=== PATIENT | male | born 1970 | race Caucasian/White ===

== ENCOUNTER 2018-05-29 09:36 | Inpatient (IN) | payer OTHER ==
[2018-05-29 10:49] VITALS: BMI 28.3
--- NOTE | 2018-05-29 13:55 | HP ---
CIWA Score Nausea/Vomitin Muscle Tremors: 2 Anxiety: 2 Agitation: 2 Paroxysmal Sweats: 1-Minimal Palms Moist Orientation: 0-Oriented Tacttile Disturbances: 1-Very Mild Itch/Numbness Auditory Disturbances: 1-Very Mild Visual Disturbances: 0-None Headache: 2-Mild CIWA-Ar Total Score: 13 - Admission Criteria OASAS Guidelines: Admission for Medically Managed Detox: Requires at least one of the followin. CIWA greater than 12 2. Seizures within the past 24 hours 3. Delirium tremens within the past 24 hours 4. Hallucinations within the past 24 hours 5. Acute intervention needed for co occurring medical disorder 6. Acute intervention needed for co occurring psychiatric disorder 7. Severe withdrawal that cannot be handled at a lower level of care (continued vomiting, continued diarrhea, abnormal vital signs) requiring intravenous medication and/or fluids 8. Admission ROS BHS - HPI Chief Complaint: i need help to stop drinking alcohol Allergies/Adverse Reactions: Allergies Allergy/AdvReac Type Severity Reaction Status Date / Time No Known Allergies Allergy Verified 05/29/18 10:15 History of Present Illness: this 47 years old male with alcohol dependence,seeking detox,withdrawal symptom, multiple admissions in detox but keep relapsing last treatment [facility] 04/02 syncope alcohol related history of frequent falls seen in [facility] last night history of hypertension on med arthritis nicotine dependence 1 pack/day,would like nicotine patch would like to go to rehab after detox Exam Limitations: No Limitations - Ebola screening Have you traveled outside of the country in the last 21 days: No Have you had contact with anyone from an Ebola affected area: No Do you have a fever: No - Review of Systems Constitutional: Malaise, Night Sweats, Changes in sleep EENT: reports: Nose Congestion Respiratory: reports: No Symptoms reported Cardiac: reports: No Symptoms Reported GI: reports: Nausea, Vomiting, Indigestion : reports: No Symptoms Reported Musculoskeletal: reports: Back Pain, Muscle Pain Integumentary: reports: Dryness Neuro: reports: Headache, Tremors Endocrine: reports: No Symptoms Reported Hematology: reports: No Symptoms Reported Psychiatric: reports: No Sypmtoms Reported, Judgement Intact, Mood/Affect Appropiate, Orientated x3 Other Systems: Reviewed and Negative Patient History - Patient Medical History Hx Anemia: No Hx Asthma: No Hx Chronic Obstructive Pulmonary Disease (COPD): No Hx Cancer: No Hx Cardiac Disorders: No Hx Congestive Heart Failure: No Hx Hypertension: Yes (TAKES HCTZ 25 MG DAILY) Hx Hypercholesterolemia: Yes (NO CURRENT MEDS) Hx Pacemaker: No HX Cerebrovascular Accident: No Hx Seizures: No Hx Dementia: No Hx Diabetes: No Hx Gastrointestinal Disorders: No Hx Liver Disease: No Hx Genitourinary Disorders: No Hx Sexually Transmitted Disorders: No Hx Renal Disease (ESRD): No Hx Thyroid Disease: No Hx Human Immunodeficiency Virus (HIV): No (NEGATIVE HX last 2016) Hx Hepatitis C: No Hx Depression: No Hx Suicide Attempt: No Hx Bipolar Disorder: No Hx Schizophrenia: No Other Medical History: no suicidal,no homicidal,frrequent falls - Patient Surgical History Past Surgical History: Yes Hx Neurologic Surgery: No Hx Cataract Extraction: No Hx Cardiac Surgery: No Hx Lung Surgery: No Hx Breast Surgery: No Hx Breast Biopsy: No Hx Abdominal Surgery: No Hx Appendectomy: No Hx Cholecystectomy: No Hx Genitourinary Surgery: No Hx Orthopedic Surgery: No Other Surgical History: fx of right mandible in 10/24 Anesthesia Reaction: No - PPD History Previous Implant?: Yes Documented Results: Negative w/o proof Implanted On Prior R Admission?: Yes Date: 11/03/15 Results: 0 mm PPD to be Administered?: Yes - Smoking Cessation Smoking history: Current every day smoker Have you smoked in the past 12 months: Yes Aproximately how many cigarettes per day: 20 Hx Chewing Tobacco Use: No Initiated information on smoking cessation: Yes 'Breaking Loose' booklet given: 05/29/18 - Substance & Tx. History Hx Alcohol Use: Yes Hx Substance Use: No Substance Use Type: Alcohol Hx Substance Use Treatment: No - Substances abused Alcohol Substance route: Oral Frequency: Daily Amount used: 3 pints of vodka/ case of 24oz beer Age of first use: 15 Date of last use: 05/29/18 Family Disease History - Family Disease History Family History: Denies Admission Physical Exam BHS - Vital Signs Vital Signs: Vital Signs - 24 hr 05/29/18 05/29/18 10:42 11:04 Temperature 97.6 F 97.6 F Pulse Rate 92 H 92 H Respiratory 20 20 Rate Blood Pressure 187/122 H 187/122 H - Physical General Appearance: Yes: Moderate Distress, Intoxicated, Cachetic, Tremorous, Irritable, Sweating HEENTM: Yes: Normal ENT Inspection, NEW, Pharynx Normal, Other (fx of mandibles ) Respiratory: Yes: Within Normal Limits, Lungs Clear, Normal Breath Sounds Neck: Yes: Within Normal Limits, Supple, Trachea in good position Breast: Yes: Within Normal Limits Cardiology: Yes: Within Normal Limits, Regular Rhythm, Regular Rate, S1, S2 Abdominal: Yes: Normal Bowel Sounds, Non Tender, Flat, Soft Genitourinary: Yes: Within Normal Limits Back: Yes: Muscle Spasm Musculoskeletal: Yes: Back pain, Muscle Pain Extremities: Yes: Tremors Neurological: Yes: investigations chief II-XII NML intact, Fully Oriented, Alert, Motor Strength 5/5 Integumentary: Yes: Dry, Other (multiple abrasions) Lymphatic: Yes: Within Normal Limits - Diagnostic (1) Alcohol dependence with uncomplicated withdrawal Current Visit: No Status: Acute (2) Alcohol dependence with uncomplicated intoxication Current Visit: Yes Status: Acute (3) Essential hypertension Current Visit: No Status: Chronic (4) Syncope Current Visit: No Status: Chronic (5) Multiple abrasions Current Visit: Yes Status: Acute (6) Dehydration Current Visit: Yes Status: Acute (7) Nicotine dependence Current Visit: Yes Status: Acute (8) Frequent falls Current Visit: Yes Status: Acute Cleared for Admission S - Detox or Rehab S Level of Care: Medically Managed Detox Regimen/Protocol: Librium Breathalyzer - Breathalyzer Breathalyzer: 0.229 Urine Drug Screen - Test Device Lot number: [id number] Expiration date: 01/12/20 - Control Is test valid?: Yes - Results Drug screen NEGATIVE: Yes Inpatient Rehab Admission - Rehab Decision to Admit Inpatient rehab admission?: No
[2018-05-29] MEDS ORDERED: MENTHOL/PHENOL 1 EACH UD MM PRN (14:09)
[2018-05-29] MEDS ORDERED: BISMUTH SUBSALICYLATE 262 MG/15 ML BTL PO PRN (14:09)
[2018-05-29] MEDS ORDERED: MAGNESIUM HYDROX 2400MG/30ML ORAL SUSPENSION 30 ML CUP PO PRN (14:09)
[2018-05-29] MEDS ORDERED: ACETAMINOPHEN 325 MG TABLET (FP) PO PRN ×2 (14:09)
[2018-05-29] MEDS ORDERED: MAGNESIUM CITRATE 300 ML BOTTLE PO PRN (14:09)
[2018-05-29] MEDS ORDERED: hydrOXYzine PAMOATE 25 MG CAPSULE (FP) PO PRN (14:09)
[2018-05-29] MEDS ORDERED: MAG HYDROX/AL HYDROX/SIMETH 30 ML UNIT-DOSE CUP PO PRN (14:09)
[2018-05-29] MEDS ORDERED: chlordiazePOXIDE HCL 25 MG CAPSULE PO PRN (14:09)
[2018-05-29] MEDS: TRIAMTERENE AND HCTZ - 37.5 MG/25 MG CAPSULE PO SCH (15:19)
[2018-05-29 16:12] LABS: HEMATOCRIT 42.9 % (35.4-49); HEMOGLOBIN 14.5 GM/dL (11.7-16.9); MCH 33.8 pg (25.7-33.7); MCHC 33.8 g/dl (32.0-35.9); MEAN PLT VOLUME 9.3 fl (7.5-11.1); PLATELET COUNT 150 K/MM3 (134-434); RBC 4.29 M/mm3 (4.00-5.60); RDW 14.1 % (11.9-15.9); WHITE BLOOD COUNT 4.8 K/mm3 (4.0-10.0)
[2018-05-29 16:17] LABS: PH,URINE 6.5 (5.0-8.0); URINE APPEARANCE CLEAR; URINE BILIRUBIN NEGATIVE (NEGATIVE); URINE COLOR YELLOW; URINE GLUCOSE (UA) NEGATIVE (NEGATIVE); URINE KETONE NEGATIVE (NEGATIVE); URINE LEUK ESTERASE NEGATIVE (NEGATIVE); URINE NITRITE NEGATIVE (NEGATIVE); URINE PROTEIN NEGATIVE (NEGATIVE); URINE UROBILINOGEN 0.2 mg/dL (0.2-1.0)
[2018-05-29 16:24] LABS: ALBUMIN 3.1 g/dl (3.4-5.0); ALK PHOS 132 U/L (45-117); ANION GAP 8 MMOL/L (8-16); BILIRUBIN,TOTAL 0.2 mg/dL (0.2-1); BLOOD UREA NITROGEN 9 mg/dL (7-18); CALCIUM 8.6 mg/dL (8.5-10.1); CHLORIDE 105 mmol/L (98-107); CO2 27 mmol/L (21-32); CREATININE 0.5 mg/dL (0.55-1.3); GLUCOSE,RANDOM 147 mg/dL (74-106); POTASSIUM 3.8 mmol/L (3.5-5.1); SGOT/AST 84 U/L (15-37); SGPT/ALT 65 U/L (13-61); SODIUM 140 mmol/L (136-145); TOT PROT 6.4 g/dl (6.4-8.2)
[2018-05-29] MEDS: chlordiazePOXIDE HCL 25 MG CAPSULE PO SCH ×2 (16:53→22:25)
[2018-05-29] MEDS ORDERED: cloNIDine HCL 0.1 MG TABLET PO ONE ×2 (17:37→20:32)
[2018-05-29] MEDS: IBUPROFEN 400 MG TABLET (FP) PO PRN (17:52)
--- NOTE | 2018-05-29 20:33 | PN ---
[facility] Progress Note Note: Vital Signs Temperature 98.4 F 05/29/18 17:34 Pulse Rate 110 H 05/29/18 17:40 Respiratory Rate 18 05/29/18 17:40 Blood Pressure 184/97 H 05/29/18 17:40 O2 Sat by Pulse Oximetry (%) asymptomatic elevated BP one time dose clonidine increase Po fluids continue to monitor
[2018-05-29] MEDS: MELATONIN 5 MG TABLETS PO PRN (22:25)
[2018-05-29] MEDS: THIAMINE HCL 100 MG TABLET (FP) PO SCH (22:25)
[2018-05-29] MEDS: RANITIDINE HCL 150 MG TABLET (FP) PO SCH (22:25)
[2018-05-29] MEDS: BACITRACIN 0.9 GM PACKET TP SCH (22:25)
[2018-05-30] MEDS: chlordiazePOXIDE HCL 25 MG CAPSULE PO SCH ×4 (06:15→22:21)
[2018-05-30] MEDS: TRIAMTERENE AND HCTZ - 37.5 MG/25 MG CAPSULE PO SCH (10:39)
[2018-05-30] MEDS: PRENATAL VITAMINS W/ FOLIC ACID TABLET (FP) PO SCH (10:39)
[2018-05-30] MEDS: BACITRACIN 0.9 GM PACKET TP SCH ×2 (10:39→22:21)
[2018-05-30] MEDS: RANITIDINE HCL 150 MG TABLET (FP) PO SCH ×2 (10:39→22:21)
[2018-05-30 11:01] LABS: HEMATOCRIT 46.7 % (35.4-49); MCH 33.8 pg (25.7-33.7); MCHC 34.3 g/dl (32.0-35.9); MEAN CELL VOLUME 98.6 fl (80-96); MEAN PLT VOLUME 9.7 fl (7.5-11.1); PLATELET COUNT 136 K/MM3 (134-434); RBC 4.74 M/mm3 (4.00-5.60); RDW 13.9 % (11.9-15.9); WHITE BLOOD COUNT 7.5 K/mm3 (4.0-10.0)
[2018-05-30 12:17] LABS: ALBUMIN 3.4 g/dl (3.4-5.0); ALK PHOS 148 U/L (45-117); ANION GAP 7 MMOL/L (8-16); BILIRUBIN,TOTAL 0.6 mg/dL (0.2-1); BLOOD UREA NITROGEN 9 mg/dL (7-18); CALCIUM 9.7 mg/dL (8.5-10.1); CHLORIDE 101 mmol/L (98-107); CO2 30 mmol/L (21-32); CREATININE 0.5 mg/dL (0.55-1.3); GLUCOSE,RANDOM 89 mg/dL (74-106); POTASSIUM 3.8 mmol/L (3.5-5.1); SGOT/AST 52 U/L (15-37); SGPT/ALT 57 U/L (13-61); SODIUM 138 mmol/L (136-145); TOT PROT 6.8 g/dl (6.4-8.2)
--- NOTE | 2018-05-30 15:15 | PN ---
[facility] CIWA - CIWA Score Nausea/Vomitin-No Nausea/No Vomiting Muscle Tremors: 2 Anxiety: 2 Agitation: 0-Normal Activity Paroxysmal Sweats: 3 Orientation: 0-Oriented Tacttile Disturbances: 2-Mild Itch/Numbness/Burn Auditory Disturbances: 2-Mild Harshness/Frighten Visual Disturbances: 0-None Headache: 0-None Present CIWA-Ar Total Score: 11 S Progress Note (SOAP) Subjective: Sweating, Chills, Body Aches, Fatigue. Objective: PATIENT A & O X 3. IN NO ACUTE DISTRESS. 05/30/18 15:14 Vital Signs Temperature 98.2 F 05/30/18 14:17 Pulse Rate 74 05/30/18 14:17 Respiratory Rate 16 05/30/18 14:17 Blood Pressure 152/93 05/30/18 14:17 O2 Sat by Pulse Oximetry (%) Laboratory Tests 05/29/18 05/29/18 05/29/18 14:00 14:00 14:00 WBC 4.8 RBC 4.29 Hgb 14.5 Hct 42.9 MCV 100.0 H MCH 33.8 H D MCHC 33.8 RDW 14.1 D Plt Count 150 D MPV 9.3 Sodium 140 Potassium 3.8 Chloride 105 Carbon Dioxide 27 Anion Gap 8 BUN 9 Creatinine 0.5 L Creat Clearance w eGFR 178.23 Random Glucose 147 H Calcium 8.6 Total Bilirubin 0.2 AST 84 H ALT 65 H Alkaline Phosphatase 132 H Total Protein 6.4 Albumin 3.1 L Urine Color Urine Appearance Urine pH Ur Specific [place] Urine Protein Urine Glucose (UA) Urine Ketones Urine Blood Urine Nitrite Urine Bilirubin Urine Urobilinogen Ur Leukocyte Esterase RPR Titer Nonreactive 05/29/18 05/30/18 05/30/18 15:00 07:00 07:00 WBC 7.5 RBC 4.74 Hgb 16.0 Hct 46.7 MCV 98.6 H MCH 33.8 H MCHC 34.3 RDW 13.9 Plt Count 136 MPV 9.7 Sodium 138 Potassium 3.8 Chloride 101 Carbon Dioxide 30 Anion Gap 7 L BUN 9 Creatinine 0.5 L Creat Clearance w eGFR 178.23 Random Glucose 89 Calcium 9.7 Total Bilirubin 0.6 AST 52 H ALT 57 Alkaline Phosphatase 148 H Total Protein 6.8 Albumin 3.4 Urine Color Yellow Urine Appearance Clear Urine pH 6.5 D Ur Specific [place] 1.007 L Urine Protein Negative Urine Glucose (UA) Negative Urine Ketones Negative Urine Blood Negative Urine Nitrite Negative Urine Bilirubin Negative Urine Urobilinogen 0.2 Ur Leukocyte Esterase Negative RPR Titer LABS NOTED. RESULTS OF REPEAT CMP NOTED. 05/30/18 15:20 Assessment: 05/30/18 15:17 WITHDRAWAL SYMPTOMS. HYPERTENSION. Plan: CONTINUE DETOX. CLONIDINE, 0.1 MG PO X 1 FOR ELEVATED BP DESPITE TREATMENT AND FOR WITHDRAWAL SYMPTOMS.
[2018-05-30] MEDS ORDERED: cloNIDine HCL 0.1 MG TABLET PO ONE (15:55)
[2018-05-30] MEDS: IBUPROFEN 400 MG TABLET (FP) PO PRN (18:01)
[2018-05-30] MEDS: THIAMINE HCL 100 MG TABLET (FP) PO SCH (22:21)
[2018-05-31] MEDS: chlordiazePOXIDE HCL 25 MG CAPSULE PO SCH ×2 (06:06→10:46)
--- NOTE | 2018-05-31 07:12 | PN ---
[facility] Progress Note Note: Patient's blood pressure was B/P 193/131. Patient is asymptomatic Vital Signs Temperature 97.1 F L 05/31/18 06:00 Pulse Rate 67 05/31/18 06:00 Respiratory Rate 18 05/31/18 06:00 Blood Pressure 193/131 H 05/31/18 06:00 O2 Sat by Pulse Oximetry (%) Action: Clonidine 0.1mg tablet oral ordered
[2018-05-31] MEDS ORDERED: cloNIDine HCL 0.1 MG TABLET PO ONE (08:15)
[2018-05-31] MEDS: BACITRACIN 0.9 GM PACKET TP SCH ×2 (10:45→22:16)
[2018-05-31] MEDS: RANITIDINE HCL 150 MG TABLET (FP) PO SCH ×2 (10:45→22:16)
[2018-05-31] MEDS: PRENATAL VITAMINS W/ FOLIC ACID TABLET (FP) PO SCH (10:45)
[2018-05-31] MEDS: TRIAMTERENE AND HCTZ - 37.5 MG/25 MG CAPSULE PO SCH (11:57)
--- NOTE | 2018-05-31 15:57 | PN ---
S CIWA - CIWA Score Nausea/Vomitin-Mild Nausea/No Vomiting Muscle Tremors: 1-None Visible, but [place] Anxiety: 1-Mildly Anxious Agitation: 1-Slight > Activity Paroxysmal Sweats: No Perspiration Orientation: 0-Oriented Tacttile Disturbances: 0-None Auditory Disturbances: 0-None Visual Disturbances: 0-None Headache: 0-None Present CIWA-Ar Total Score: 4 BHS Progress Note (SOAP) Subjective: pt doing well on alcohol detox protocol- no complaints, high BP noted- pt states takes HCTZ for BP control O: Vital Signs - 24 hr 05/30/18 05/30/18 05/31/18 17:15 21:27 00:30 Temperature 98.4 F 97.9 F Pulse Rate 70 91 H Respiratory 20 18 18 Rate Blood Pressure 152/96 117/92 05/31/18 05/31/18 05/31/18 06:00 11:18 14:54 Temperature 97.1 F L 98.2 F 97.6 F Pulse Rate 67 84 91 H Respiratory 18 18 18 Rate Blood Pressure 193/131 H 144/106 H 148/88 Laboratory Tests 05/29/18 05/29/18 05/29/18 14:00 14:00 14:00 WBC 4.8 RBC 4.29 Hgb 14.5 Hct 42.9 MCV 100.0 H MCH 33.8 H D MCHC 33.8 RDW 14.1 D Plt Count 150 D MPV 9.3 Sodium 140 Potassium 3.8 Chloride 105 Carbon Dioxide 27 Anion Gap 8 BUN 9 Creatinine 0.5 L Creat Clearance w eGFR 178.23 Random Glucose 147 H Calcium 8.6 Total Bilirubin 0.2 AST 84 H ALT 65 H Alkaline Phosphatase 132 H Total Protein 6.4 Albumin 3.1 L Urine Color Urine Appearance Urine pH Ur Specific [place] Urine Protein Urine Glucose (UA) Urine Ketones Urine Blood Urine Nitrite Urine Bilirubin Urine Urobilinogen Ur Leukocyte Esterase RPR Titer Nonreactive 05/29/18 05/30/18 05/30/18 15:00 07:00 07:00 WBC 7.5 RBC 4.74 Hgb 16.0 Hct 46.7 MCV 98.6 H MCH 33.8 H MCHC 34.3 RDW 13.9 Plt Count 136 MPV 9.7 Sodium 138 Potassium 3.8 Chloride 101 Carbon Dioxide 30 Anion Gap 7 L BUN 9 Creatinine 0.5 L Creat Clearance w eGFR 178.23 Random Glucose 89 Calcium 9.7 Total Bilirubin 0.6 AST 52 H ALT 57 Alkaline Phosphatase 148 H Total Protein 6.8 Albumin 3.4 Urine Color Yellow Urine Appearance Clear Urine pH 6.5 D Ur Specific [place] 1.007 L Urine Protein Negative Urine Glucose (UA) Negative Urine Ketones Negative Urine Blood Negative Urine Nitrite Negative Urine Bilirubin Negative Urine Urobilinogen 0.2 Ur Leukocyte Esterase Negative RPR Titer a/p: continue alcohol detox protocol BP 148/88 today- will monitor, and add meds as needed
[2018-05-31] MEDS ORDERED: chlordiazePOXIDE HCL 10 MG CAPSULE PO PRN (17:00)
[2018-05-31] MEDS: chlordiazePOXIDE HCL 10 MG CAPSULE PO SCH ×2 (17:46→22:16)
[2018-05-31] MEDS: THIAMINE HCL 100 MG TABLET (FP) PO SCH (22:15)
[2018-05-31] MEDS: METHOCARBAMOL 500 MG TABLET PO PRN (22:16)
[2018-06-01] MEDS: chlordiazePOXIDE HCL 10 MG CAPSULE PO SCH ×3 (06:06→17:47)
[2018-06-01] MEDS ORDERED: cloNIDine HCL 0.1 MG TABLET PO ONE ×2 (07:04→10:15)
[2018-06-01] MEDS ORDERED: LISINOPRIL 10 MG TABLET (FP) PO SCH (10:00)
[2018-06-01] MEDS: RANITIDINE HCL 150 MG TABLET (FP) PO SCH ×2 (10:27→22:53)
[2018-06-01] MEDS: BACITRACIN 0.9 GM PACKET TP SCH ×2 (10:27→22:53)
[2018-06-01] MEDS: PRENATAL VITAMINS W/ FOLIC ACID TABLET (FP) PO SCH (10:27)
[2018-06-01] MEDS: TRIAMTERENE AND HCTZ - 37.5 MG/25 MG CAPSULE PO SCH (11:00)
--- NOTE | 2018-06-01 12:42 | PN ---
S Progress Note Note: Pt's BP is 174/112, HR of 76, pt denies any SOB, headache, blurred vision, chest pain, or N/V. Clonidine 0.1mg po once ordered. Nursing staff instructed to recheck BP 1hr after medication administration.
--- NOTE | 2018-06-01 15:36 | PN ---
S CIWA - CIWA Score Nausea/Vomitin-No Nausea/No Vomiting Muscle Tremors: None Anxiety: 1-Mildly Anxious Agitation: 0-Normal Activity Paroxysmal Sweats: 3 Orientation: 0-Oriented Tacttile Disturbances: 0-None Auditory Disturbances: 0-None Visual Disturbances: 0-None Headache: 2-Mild CIWA-Ar Total Score: 6 BHS Progress Note (SOAP) Subjective: sweats headache Objective: 06/01/18 15:34 Vital Signs 06/01/18 06/01/18 09:46 14:33 Temperature 98.3 F 98.0 F Pulse Rate 74 62 Respiratory 18 18 Rate Blood Pressure 150/115 H 112/65 Laboratory Last Values WBC 7.5 K/mm3 (4.0-10.0) 05/30/18 07:00 RBC 4.74 M/mm3 (4.00-5.60) 05/30/18 07:00 Hgb 16.0 GM/dL (11.7-16.9) 05/30/18 07:00 Hct 46.7 % (35.4-49) 05/30/18 07:00 MCV 98.6 fl (80-96) H 05/30/18 07:00 MCH 33.8 pg (25.7-33.7) H 05/30/18 07:00 MCHC 34.3 g/dl (32.0-35.9) 05/30/18 07:00 RDW 13.9 % (11.9-15.9) 05/30/18 07:00 Plt Count 136 K/MM3 (134-434) 05/30/18 07:00 MPV 9.7 fl (7.5-11.1) 05/30/18 07:00 Sodium 138 mmol/L (136-145) 05/30/18 07:00 Potassium 3.8 mmol/L (3.5-5.1) 05/30/18 07:00 Chloride 101 mmol/L (98-107) 05/30/18 07:00 Carbon Dioxide 30 mmol/L (21-32) 05/30/18 07:00 Anion Gap 7 MMOL/L (8-16) L 05/30/18 07:00 BUN 9 mg/dL (7-18) 05/30/18 07:00 Creatinine 0.5 mg/dL (0.55-1.3) L 05/30/18 07:00 Creat Clearance w eGFR 178.23 (>60) 05/30/18 07:00 Random Glucose 89 mg/dL (74-106) 05/30/18 07:00 Calcium 9.7 mg/dL (8.5-10.1) 05/30/18 07:00 Total Bilirubin 0.6 mg/dL (0.2-1) 05/30/18 07:00 AST 52 U/L (15-37) H 05/30/18 07:00 ALT 57 U/L (13-61) 05/30/18 07:00 Alkaline Phosphatase 148 U/L (45-117) H 05/30/18 07:00 Total Protein 6.8 g/dl (6.4-8.2) 05/30/18 07:00 Albumin 3.4 g/dl (3.4-5.0) 05/30/18 07:00 Urine Color Yellow 05/29/18 15:00 Urine Appearance Clear 05/29/18 15:00 Urine pH 6.5 (5.0-8.0) D 05/29/18 15:00 Ur Specific [place] 1.007 (1.010-1.035) L 05/29/18 15:00 Urine Protein Negative (NEGATIVE) 05/29/18 15:00 Urine Glucose (UA) Negative (NEGATIVE) 05/29/18 15:00 Urine Ketones Negative (NEGATIVE) 05/29/18 15:00 Urine Blood Negative (NEGATIVE) 05/29/18 15:00 Urine Nitrite Negative (NEGATIVE) 05/29/18 15:00 Urine Bilirubin Negative (NEGATIVE) 05/29/18 15:00 Urine Urobilinogen 0.2 mg/dL (0.2-1.0) 05/29/18 15:00 Ur Leukocyte Esterase Negative (NEGATIVE) 05/29/18 15:00 RPR Titer Nonreactive (NONREACTIVE) 05/29/18 14:00 Labs reviewed Assessment: 06/01/18 15:35 AOX3, no distress Full rom ambulating in the unit Plan: continue detox continue to monitor
[2018-06-01] MEDS: IBUPROFEN 400 MG TABLET (FP) PO PRN (16:01)
[2018-06-01] MEDS: THIAMINE HCL 100 MG TABLET (FP) PO SCH (22:53)
[2018-06-01] MEDS: MELATONIN 5 MG TABLETS PO PRN (22:53)
[2018-06-02] MEDS: chlordiazePOXIDE HCL 10 MG CAPSULE PO SCH ×2 (05:19→17:56)
[2018-06-02] MEDS: TRIAMTERENE AND HCTZ - 37.5 MG/25 MG CAPSULE PO SCH (06:27)
[2018-06-02] MEDS: LISINOPRIL 10 MG TABLET (FP) PO SCH (06:27)
[2018-06-02] MEDS: BACITRACIN 0.9 GM PACKET TP SCH ×2 (10:34→22:16)
[2018-06-02] MEDS: PRENATAL VITAMINS W/ FOLIC ACID TABLET (FP) PO SCH (10:34)
[2018-06-02] MEDS: RANITIDINE HCL 150 MG TABLET (FP) PO SCH ×2 (10:34→22:16)
--- NOTE | 2018-06-02 14:43 | PN ---
S CIWA - CIWA Score Nausea/Vomitin-No Nausea/No Vomiting Muscle Tremors: None Anxiety: 3 Agitation: 2 Paroxysmal Sweats: 2 Orientation: 0-Oriented Tacttile Disturbances: 0-None Auditory Disturbances: 0-None Visual Disturbances: 0-None Headache: 0-None Present CIWA-Ar Total Score: 7 S Progress Note (SOAP) Subjective: Feels anxious, restless, sweating. Patient for discharge today but requesting inpatient rehab as he is afraid of relapsing. Patient stated that if he leaves today he is sure of drinking alcohol. Hold discharge until rehab bed available, hopefully tomorrow. Objective: 06/02/18 14:40 Last Vital Signs Temp Pulse Resp BP Pulse Ox 97.3 F L 67 18 113/67 06/02/18 14:20 06/02/18 14:20 06/02/18 14:20 06/02/18 14:20 Laboratory Tests 05/29/18 05/29/18 05/29/18 14:00 14:00 14:00 WBC 4.8 RBC 4.29 Hgb 14.5 Hct 42.9 MCV 100.0 H MCH 33.8 H D MCHC 33.8 RDW 14.1 D Plt Count 150 D MPV 9.3 Sodium 140 Potassium 3.8 Chloride 105 Carbon Dioxide 27 Anion Gap 8 BUN 9 Creatinine 0.5 L Creat Clearance w eGFR 178.23 Random Glucose 147 H Calcium 8.6 Total Bilirubin 0.2 AST 84 H ALT 65 H Alkaline Phosphatase 132 H Total Protein 6.4 Albumin 3.1 L Urine Color Urine Appearance Urine pH Ur Specific [place] Urine Protein Urine Glucose (UA) Urine Ketones Urine Blood Urine Nitrite Urine Bilirubin Urine Urobilinogen Ur Leukocyte Esterase RPR Titer Nonreactive 05/29/18 05/30/18 05/30/18 15:00 07:00 07:00 WBC 7.5 RBC 4.74 Hgb 16.0 Hct 46.7 MCV 98.6 H MCH 33.8 H MCHC 34.3 RDW 13.9 Plt Count 136 MPV 9.7 Sodium 138 Potassium 3.8 Chloride 101 Carbon Dioxide 30 Anion Gap 7 L BUN 9 Creatinine 0.5 L Creat Clearance w eGFR 178.23 Random Glucose 89 Calcium 9.7 Total Bilirubin 0.6 AST 52 H ALT 57 Alkaline Phosphatase 148 H Total Protein 6.8 Albumin 3.4 Urine Color Yellow Urine Appearance Clear Urine pH 6.5 D Ur Specific [place] 1.007 L Urine Protein Negative Urine Glucose (UA) Negative Urine Ketones Negative Urine Blood Negative Urine Nitrite Negative Urine Bilirubin Negative Urine Urobilinogen 0.2 Ur Leukocyte Esterase Negative RPR Titer Labs reviewed: alk phos 148 Assessment: 06/02/18 14:43 Withdrawal symptoms Noted with elevated alk phosphatase Plan: Continue detox Encouraged PO water hydration Please admit to [facility] in AM Elevated alk phosphatase: repeat alk phos level in AM
[2018-06-02] MEDS: MELATONIN 5 MG TABLETS PO PRN (22:16)
[2018-06-02] MEDS: THIAMINE HCL 100 MG TABLET (FP) PO SCH (22:16)
[2018-06-02] MEDS: METHOCARBAMOL 500 MG TABLET PO PRN (22:18)
[2018-06-02] MEDS: IBUPROFEN 400 MG TABLET (FP) PO PRN (22:18)
[2018-06-03 06:10] VITALS: BP 128/80; PULSE 58; TEMP 97.5
[2018-06-03] MEDS: LISINOPRIL 10 MG TABLET (FP) PO SCH (07:00)
[2018-06-03] MEDS: TRIAMTERENE AND HCTZ - 37.5 MG/25 MG CAPSULE PO SCH (07:00)
--- NOTE | 2018-06-03 20:33 | DS ---
[facility] Detox Discharge Summary Admission Date: 05/29/18 Discharge Date: 06/03/18 - History Present History: Alcohol Dependence Additional Comments: PATIENT WISHES TO GO TO [facility] ([place], [place]) FOR AFTERCARE ; HOWEVER, NO REHAB BEDS AVAILABLE AT [facility] AT THIS TIME. PATIENT OFFERED OPPORTUNITY TO GO TO REHAB AT [facility]; HOWEVER, PATIENT DECLINED TO DO SO AT THIS TIME AND ELECTS TO LEAVE DETOX UNIT AND RETURN HOME. PATIENT ADVISED TO CONTACT [facility] ADMISSIONS DEPARTMENT STARTING TOMORROW AM TO INQUIRE ABOUT BED AVAILABILTY AT THAT TIME OR ELSE CONSIDER LOCAL 12-STEP / [facility] OUTPATIENT SUPPORT GROUPS FOR AFTERCARE. PATIENT ALSO ADVISED TO FOLLOW-UP WITH [employer] SERVICE TECHNICIAN WHEN POSSIBLE AFTER DISCHARGE DETOX UNIT FOR GENERAL MEDICAL ASSESSMENT AND FOR HISTORY OF HYPERTENSION. PATIENT VERBALIZED UNDERSTANDING OF ALL RECOMMENDATIONS PRESENTED TO HIM PRIOR TO DISCHARGE FROM DETOX UNIT. PATIENT WAS DISCHARGED FROM DETOX UNIT IN STABLE MEDICAL CONDITION. Pertinent Past History: HTN, Hypercholesterolemia, History Of Frequent Falls, History Of Syncope, History Of Arthritis, Nicotine Dependence, Multiple Abrasions, Dehydration. - Physical Exam Results Vital Signs: Vital Signs Temperature 97.5 F L 06/03/18 06:00 Pulse Rate 58 L 06/03/18 06:00 Respiratory Rate 18 06/03/18 06:00 Blood Pressure 128/80 06/03/18 06:00 O2 Sat by Pulse Oximetry (%) Pertinent Admission Physical Exam Findings: WITHDRAWAL SYMPTOMS. Laboratory Tests 05/29/18 05/29/18 05/29/18 14:00 14:00 14:00 WBC 4.8 RBC 4.29 Hgb 14.5 Hct 42.9 MCV 100.0 H MCH 33.8 H D MCHC 33.8 RDW 14.1 D Plt Count 150 D MPV 9.3 Sodium 140 Potassium 3.8 Chloride 105 Carbon Dioxide 27 Anion Gap 8 BUN 9 Creatinine 0.5 L Creat Clearance w eGFR 178.23 Random Glucose 147 H Calcium 8.6 Total Bilirubin 0.2 AST 84 H ALT 65 H Alkaline Phosphatase 132 H Total Protein 6.4 Albumin 3.1 L Urine Color Urine Appearance Urine pH Ur Specific [place] Urine Protein Urine Glucose (UA) Urine Ketones Urine Blood Urine Nitrite Urine Bilirubin Urine Urobilinogen Ur Leukocyte Esterase RPR Titer Nonreactive 05/29/18 05/30/18 05/30/18 15:00 07:00 07:00 WBC 7.5 RBC 4.74 Hgb 16.0 Hct 46.7 MCV 98.6 H MCH 33.8 H MCHC 34.3 RDW 13.9 Plt Count 136 MPV 9.7 Sodium 138 Potassium 3.8 Chloride 101 Carbon Dioxide 30 Anion Gap 7 L BUN 9 Creatinine 0.5 L Creat Clearance w eGFR 178.23 Random Glucose 89 Calcium 9.7 Total Bilirubin 0.6 AST 52 H ALT 57 Alkaline Phosphatase 148 H Total Protein 6.8 Albumin 3.4 Urine Color Yellow Urine Appearance Clear Urine pH 6.5 D Ur Specific [place] 1.007 L Urine Protein Negative Urine Glucose (UA) Negative Urine Ketones Negative Urine Blood Negative Urine Nitrite Negative Urine Bilirubin Negative Urine Urobilinogen 0.2 Ur Leukocyte Esterase Negative RPR Titer 06/03/18 07:45 WBC RBC Hgb Hct MCV MCH MCHC RDW Plt Count MPV Sodium Potassium Chloride Carbon Dioxide Anion Gap BUN Creatinine Creat Clearance w eGFR Random Glucose Calcium Total Bilirubin AST ALT Alkaline Phosphatase 109 Total Protein Albumin Urine Color Urine Appearance Urine pH Ur Specific [place] Urine Protein Urine Glucose (UA) Urine Ketones Urine Blood Urine Nitrite Urine Bilirubin Urine Urobilinogen Ur Leukocyte Esterase RPR Titer LABS NOTED. - Treatment Hospital Course: Detox Protocol Followed, Detoxed Safely, Responded well, Discharged Condition Good, Rehab Referral Accepted Patient has Accepted a Rehab Referral to: PT WILL APPLY FOR ADMISSION AT [facility] AT LATER DATE. - Medication Discharge Medications: Ambulatory Orders Famotidine [Acid Controller] 20 mg PO BID 05/29/18 Folic Acid 1 mg PO DAILY 05/29/18 Levalbuterol Tartrate [Levalbuterol Tartrate Hfa] 45 mcg IN PRN PRN 05/29/18 Multivitamin [Multiple Vitamins] 1 each PO DAILY 05/29/18 Nicotine Patch 7 mg/24 hr 7 mg DAILY 05/29/18 Sertraline HCl 50 mg PO DAILY 05/29/18 Thiamine HCl [B-1] 100 mg PO DAILY 05/29/18 Hctz 25Mg/Triamterene [Dyazide 25/37.5 -] 1 cap PO DAILY 30 Days #30 capsule - Diagnosis (1) Alcohol dependence with uncomplicated intoxication Status: Acute (2) Alcohol dependence with uncomplicated withdrawal Status: Acute (3) Dehydration Status: Acute (4) Frequent falls Status: Acute (5) Multiple abrasions Status: Acute (6) Nicotine dependence Status: Acute Qualifiers: Nicotine product type: cigarettes Substance use status: uncomplicated Qualified Code(s): F17.210 - Nicotine dependence, cigarettes, uncomplicated (7) Essential hypertension Status: Chronic (8) Syncope Status: Chronic - AMA Did Patient Leave Against Medical Advice: No
== END 2018-06-03 10:10 | disposition home or self-care (01) | DRG 775 ==
LOC: YASAS 09:36 → Y6N 14:20
PROVIDERS: ADMIT Surgery; ATTEND Surgery
PROC: HZ2ZZZZ Detoxification Services for Substance Abuse Treatment (ICD-10-PCS; principal; 2018-05-29)
DX: F10.230 Alcohol dependence with withdrawal, uncomplicated (principal); F10.220 Alcohol dependence with intoxication, uncomplicated; F17.210 Nicotine dependence, cigarettes, uncomplicated; I10 Essential (primary) hypertension; E78.00 Pure hypercholesterolemia, unspecified; E86.0 Dehydration; M12.9 Arthropathy, unspecified; R29.6 Repeated falls; Z86.79 Personal history of other diseases of the circulatory system; R74.8 Abnormal levels of other serum enzymes; Z59.0 Homelessness
CPT/HCPCS: 36415; 80053; 81003; 84075; 85027; 86593; J0735